=== PATIENT | male | born 1995 | race Caucasian/White ===

== ENCOUNTER 2019-09-18 03:40 | Emergency (ER) | payer SELFPAY ==
[~2019-09-18] VITALS: Ht 185.4 cm; Wt 110.2 kg
[2019-09-18 03:49] VITALS: BP 139/90
--- NOTE | 2019-09-18 03:49 | NUR ---
ANIYA ANGEL to chair c
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
--- NOTE | 2019-09-18 03:57 | NUR ---
omid Ulloa assessing patient.
--- NOTE | 2019-09-18 04:04 | NUR ---
patient discharged back [facility] custody under Officer Katie #[id number]. pt discharged with VSS. wristband removed. education provided and opportunity to ask questions given.
== END 2019-09-18 04:03 ==
LOC: MED 03:40
DX: R03.0 Elevated blood-pressure reading, without diagnosis of hypertension (principal); Z02.89 Encounter for other administrative examinations
CPT/HCPCS: 99283